=== PATIENT | male | born 1965 | race Caucasian/White ===

== ENCOUNTER 2016-05-01 10:56 | Emergency (ER) | payer BC, OTHER ==
[2016-05-01] MEDS ORDERED: BACIGUENT PACKET ONE (11:02)
[2016-05-01] MEDS ORDERED: Adacel Vial IM ONE ×2 (11:02→11:15)
[2016-05-01] MEDS ORDERED: BACIGUENT PACKET TP ONE (11:15)
--- NOTE | 2016-05-01 11:22 | ERPHSYRPT ---
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 puncture wound to top of lt head. bleeding controlled. Physician History: CC: head injury Hx: 51 y/o patient working for [employer]. 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 Has a cut that was bleeding. No LOC. No neck or back pain. No N/T/W. No N/V. He held pressure for bleeding control. Unsure last tetanus vaccine. Occurred: just prior to arrival Allergies/Adverse Reactions: No Known Drug Allergies Allergy (Unverified 05/01/16 11:06) Home Medications: Tramadol HCl 50 mg [Ultram 50 mg] 50 mg PO TID 05/01/16 [History] Hx Tetanus, Diphtheria Vaccination/Date Given: Yes Hx Influenza Vaccination/Date Given: No Hx Pneumococcal Vaccination/Date Given: No Immunizations Up to Date: Yes - Review of Systems Constitutional: No Symptoms, Fever Eyes: No Vision Changes Abdominal/Gastrointestinal: No Vomiting Musculoskeletal: No Back Pain, No Neck Pain Skin: Skin Lesions (laceration head) Neurological: No Focal Weakness, No Headache, No Parasthesia All Other Systems: Reviewed and Negative - Past Medical History Pertinent Past Medical History: Yes Other Medical History: blood clot. chronic back pain - Past Surgical History Past Surgical History: Yes Cardiac: Cardiac Catheterization, Cardiac Stent Other Surgical History: sinus - Social History Smoking Status: Never smoker Exposure to second hand smoke: Yes Drug Use: none Patient Lives Alone: No - Nursing Vital Signs Nursing Vital Signs: Initial Vital Signs Temperature 98.2 F Temperature Source Oral Pulse Rate 115 Respiratory Rate 18 Blood Pressure [Left Arm] 205/105 Pain Intensity 1 - [place] Coma Score Best Eye Response ([place]): (4) open spontaneously Best Verbal Response ([place]): (5) oriented Best Motor Response ([place]): (6) obeys commands [place] Total: 15 - Physical Exam General Appearance: alert Head Injury: lacerations (0.4cm superior scalp laceration, no step off, no hematoma, no FB) Eye Exam: bilateral eye: PERRL, EOMI Neck Exam: supple, full range of motion, No mid-line tenderness Cardiovascular/Respiratory Exam: regular rate/rhythm Gastrointestinal/Abdominal Exam: soft, non tender, no distention Extremity Exam: non-tender, normal range of motion Mental Status Exam: alert, oriented x 3, cooperative Motor/Sensory Exam: no motor deficit, no sensory deficit Skin Exam: warm, dry SpO2 Interpretation: normal SpO2: 99 Oxygen Delivery: Room Air Procedures - Laceration/Wound Repair scalp Wound Length (cm): 0.4 Wound's Depth, Shape: linear Wound Explored: clean Hibiclens Prep: Yes Wound Repaired With: Ana Paula (#1) - Course Nursing assessment & vital signs reviewed: Yes Ordered Tests: Active Orders 24 hr Category Date Time Status Prepare for Sutures STAT Care 05/01/16 11:15 Ordered Sutures STAT Care 05/01/16 11:16 Ordered Wound Care STAT Care 05/01/16 11:15 Ordered Medication Summary Discontinued Medications Generic Name Dose Route Start Last Admin Trade Name Freq PRN Reason Stop Dose Admin Bacitracin Confirm 05/01/16 11:02 Baciguent Packet Administered 05/01/16 11:03 Dose 1 gm .ROUTE .STK-MED ONE Diphtheria/Tetanus/Acell Pertussis 0.5 ml 05/01/16 11:15 Adacel Vial IM 05/01/16 11:16 .ONCE ONE - Progress Progress Note: 05/01/16 11:[address] not indicated. Adacel updated. Wound and head injury instuctions given. Counseled pt/family regarding: diagnosis, need for follow-up - Departure Time of Disposition: 11:22 Departure Disposition: Home Clinical Impression: Scalp laceration Qualifiers: Encounter type: initial encounter Qualified Code(s): S01.01XA - Laceration without foreign body of scalp, initial encounter Condition: Stable Critical Care Time: No Referrals: Jane HARRIS [Primary Care Provider] - Instructions: Care for a Laceration After Repair Additional Instructions: HEAD INJURY 1. A responsible person should observe the patient at home for 24 hours. 2. If any of the following signs or symptoms are observed or occur, call your family physician or return to the emergency department: A. Behavior change B. Persistent vomiting C. Unequal pupils D. Increasing drowsiness E. Difficulty in arousing the patient F. Severe headache G. Lump on head increasing in size LACERATION CARE 1. Do not use peroxide, merthiolate, alcohol, or betadine. 2. Keep wound clean and dry. 3. Change dressing if it becomes wet or soiled. 4. If you must work, wear protective covering. 5. You may return to the emergency department or see your family physician for suture removal. 6. See your family physician or return to the emergency department for any of the following signs or symptoms: A. Redness B. Swelling C. Discolored drainage D. Red streaks E. Elevated temperature F. Other signs of infection Staple removal in 10 days.
[2016-05-01 11:38] VITALS: BP 178/110; PULSE 100; O2SAT 100
== END 2016-05-01 11:50 | disposition home or self-care (01) ==
LOC: ED 10:56
PROC: 0HQ0XZZ Repair Scalp Skin, External Approach (ICD-10-PCS; principal; 2016-05-01)
DX: S01.01XA Laceration without foreign body of scalp, initial encounter (principal); W20.8XXA Other cause of strike by thrown, projected or falling object, initial encounter; Y92.69 Other specified industrial and construction area as the place of occurrence of the external cause; Y99.0 Civilian activity done for income or pay
CPT/HCPCS: 12001; 90715; 99283; A9270-GY